=== PATIENT | female | born 1940 | race Caucasian/White ===

== ENCOUNTER 2017-04-30 16:50 | Inpatient (IN) | payer MEDICARE, OTHER ==
[~2017-04-30] VITALS: Ht 167.6 cm; Wt 59.9 kg
[2017-04-30] MEDS ORDERED: LORA1TAB PO (17:13)
[2017-04-30] MEDS ORDERED: CYAN500L3 SL (17:13)
[2017-04-30] MEDS ORDERED: HYOS0.1273 PO (17:13)
[2017-04-30] MEDS ORDERED: THIA100T13 PO (17:13)
[2017-04-30] MEDS ORDERED: RAME8TAB15 PO (17:13)
[2017-04-30] MEDS ORDERED: DIGO125T PO (17:13)
[2017-04-30] MEDS ORDERED: ZOLP5TAB2 PO (17:13)
[2017-04-30] MEDS ORDERED: CARI350T27 PO (17:13)
[2017-04-30] MEDS ORDERED: MULT1TAB73 PO (17:13)
[2017-04-30] MEDS ORDERED: FOLI1TAB16 PO (17:13)
--- NOTE | 2017-04-30 17:15 | NUR ---
SBAR report given to Aashish RN in MHU. Spoke with nursing restaurant supervisor Mikaela who stated even thought the pt was accepted as a voluntary admission to MHU she needs another psych eval.
--- NOTE | 2017-04-30 17:15 | NUR ---
PT IS MEDICALLY CLEARED BY DR HUGO. CALLED GALINDO LOO FROM [facility], ETA 2 HOURS.
--- NOTE | 2017-04-30 17:21 | NUR ---
BELONGING LIST COMPLETED AND PLACED IN THE CHART. MRSA SWAB COLLECTED AND SENT TO LAB.
--- NOTE | 2017-04-30 18:22 | NUR ---
PT PROVIDED DINNER AND ATE 100% OF DINNER TRAY.
--- NOTE | 2017-04-30 18:47 | NUR ---
PT RESTING IN BED, READING A BOOK. NO C/O PAIN.
[2017-04-30] MEDS ORDERED: LORAZEPAM 0.5 MG TABLET PO ONE (19:15)
[2017-04-30] MEDS ORDERED: DIGOXIN 125 MCG TABLET PO ONE (19:15)
[2017-04-30] MEDS ORDERED: LORAZEPAM 1 MG TABLET ONE (19:33)
[2017-04-30] MEDS ORDERED: DIGOXIN 125 MCG TABLET ONE (19:34)
--- NOTE | 2017-04-30 21:07 | NUR ---
pt refuses pain medication for c/o headache - vs and ns wnl - report provided to rhiannon fink rn
[2017-04-30] MEDS ORDERED: MAGNESIUM HYDROXIDE 30 ML LIQUID UDC PO PRN (21:15)
[2017-04-30] MEDS ORDERED: MAG HYDROX/AL HYDROX/SIMETH 30 ML LIQUID UDC PO PRN (21:15)
[2017-04-30] MEDS ORDERED: ZOLPIDEM 5 MG TABLET PO PRN (21:15)
[2017-04-30] MEDS: LORAZEPAM 0.5 MG TABLET PO PRN (22:27)
[2017-04-30] MEDS ORDERED: LORAZEPAM 0.5 MG TABLET ONE (22:35)
--- NOTE | 2017-04-30 23:04 | NUR ---
At approx 2115, admitted 77 year old female to [facility] under the care of Dr Raymundo. Pt is on a 5150 hold due to GD. Patient lives in a Mobile home, she was BIB EMS to [facility] ER after her caregiver found her unresponsive with pills bottles next to her. Pt presented to [facility] ER with AMS and worsening depression which she has been suffering from since her passes away one year ago. Upon evaluation in the ER, her alcohol level was slightly elevated and there was suspicion by the paramedics that she took extra doses of her medications including digoxin lorazepam and soma. Per hold, Pt. has had increased ETOH and frequent falls, patient denied intension OD. [facility] [place] [facility] Holds started on 04/30/17 at 1999 and will end on 05/03/17 at 1999. At time of admission, patient was noted irritable. She was not compliant with admission process. She required multiple redirections. Skin assessment, two small circular bruises noted in left mid arm lateral aspect. will continue to monitor.
[2017-04-30] MEDS ORDERED: HYOSCYAMINE SULFATE 0.125 MG TABLET PO PRN (23:45)
[2017-05-01 02:52] VITALS: BP 131/88
[2017-05-01] MEDS: FOLIC ACID 1 MG TABLET PO SCH (09:00)
[2017-05-01] MEDS ORDERED: DIGOXIN 125 MCG TABLET PO SCH (09:00)
[2017-05-01] MEDS: THIAMINE HCL 100 MG TABLET PO SCH (09:14)
[2017-05-01] MEDS: ESCITALOPRAM OXALATE 10 MG TABLET PO SCH (10:00)
--- NOTE | 2017-05-01 13:02 | NUR ---
Initial Discharge Instructions: Pt currently lives in a mobile home alone [[address] [place] [id number]; [phone]]. Per pt, she would like to return there upon discharge with Home Health for Physical Therapy. acetone recovery worker attempted to contact pt's nephew, Cayden, and left a voicemail. SW will speak with pt, family, and MD regarding appropriate discharge plans. SW will form a safe and proper discharge.
[2017-05-01] MEDS: LORAZEPAM 0.5 MG TABLET PO PRN ×2 (13:39→20:03)
--- NOTE | 2017-05-01 13:45 | NUR ---
Gps/Tool Shaper Setup Operator- Suspicious, hesitant to take routine medications orders by Psychiatrist, wants print out to read , does not just talking and telling her, what is the indications of lexapro for. Claimed Pyschiatrist didnt talk to her about any medicatons, she only takes ativan per patient.
[2017-05-01 15:00] VITALS: BP 127/81
--- NOTE | 2017-05-01 15:00 | NUR ---
Gps/Adjunct Phlebotomy Instructor- Per patient she found her ring with red stone in her room , verbalized she is worried that rings that was placed in the safe are not complete since she found the ring that supposed to be in the safe,informed rings secures in the safe
--- NOTE | 2017-05-01 15:07 | NUR ---
Firearms Report: [employer] completed and submitted [employer]arms Report on 05/01/17.
[2017-05-01] MEDS: ACETAMINOPHEN 325 MG TABLET PO PRN (16:54)
[2017-05-01] MEDS: DIGOXIN 125 MCG TABLET PO SCH (19:44)
[2017-05-01 20:00] VITALS: BP 140/79
--- NOTE | 2017-05-01 20:03 | NUR ---
gps: patient c/o anxiety. ativan 0.5 mg po given.
[2017-05-01] MEDS: TRAZODONE 50 MG TABLET PO SCH (21:00)
--- NOTE | 2017-05-01 21:05 | NUR ---
gps: patient stated i am feeling better now. prn effective for anxiety.
[2017-05-02] MEDS: CARISOPRODOL 350 MG TABLET PO PRN ×2 (00:17→20:15)
--- NOTE | 2017-05-02 00:18 | NUR ---
gps: patient c/o spasm. soma 350 mg po given per patient requested,
--- NOTE | 2017-05-02 01:20 | NUR ---
gps: patient stated i am feeling better now. prn for spasm effective.
[2017-05-02] MEDS: DIGOXIN 125 MCG TABLET PO SCH ×2 (06:06→18:42)
--- NOTE | 2017-05-02 06:36 | NUR ---
GPS: Remain calm and cooperative with care. refused trazodone hs po dose. slept 08:15 hrs through the night. patient is needy but manageable with nursing care. continue monitoring for safety.
[2017-05-02 07:23] LABS: BASOPHILS # (AUTO) 0.1 K/uL (0.0-8.0); BASOPHILS % (AUTO) 1.1 % (0.0-2.0); EOSINOPHILS # (AUTO) 0.2 K/uL (0.0-0.7); EOSINOPHILS % (AUTO) 3.4 % (0.0-7.0); HEMOGLOBIN 14.2 g/dL (10.9-14.3); LYMPHOCYTES # (AUTO) 1.3 K/uL (20.0-40.0); LYMPHOCYTES % (AUTO) 25.5 % (20.5-51.5); MEAN CORPUSCULAR HGB CONC 35 g/dL (32.3-35.6); MEAN CORPUSCULAR VOLUME 107.1 fL (75.5-95.3); MONOCYTES # (AUTO) 0.6 K/uL (2.0-10.0); MONOCYTES % (AUTO) 12.4 % (0.0-11.0); NEUTROPHILS # (AUTO) 2.9 K/uL (1.8-8.9); NEUTROPHILS % (AUTO) 57.6 % (38.5-71.5); PLATELET COUNT (AUTO) 137 K/uL (179-408); RED BLOOD CELL COUNT(AUTO) 3.83 MIL/uL (3.63-4.92); WHITE BLOOD COUNT (AUTO) 5.1 K/uL (3.8-11.8)
[2017-05-02 07:30] VITALS: BP 130/79
[2017-05-02 07:35] LABS: CARBON DIOXIDE 29 mmol/L (21-32); CHLORIDE 106 mmol/L (98-107); CREATININE 0.8 mg/dL (0.6-1.3); GLUCOSE 139 mg/dL (74-106); MAGNESIUM 2.1 mg/dL (1.8-2.4); PHOSPHOROUS 3.6 mg/dL (2.5-4.9); POTASSIUM 4.6 mmol/L (3.5-5.1); UREA NITROGEN, BLOOD 20 mg/dL (7-18)
[2017-05-02] MEDS: LORAZEPAM 0.5 MG TABLET PO PRN ×2 (09:50→16:56)
[2017-05-02] MEDS: THIAMINE HCL 100 MG TABLET PO SCH (09:50)
[2017-05-02] MEDS: FOLIC ACID 1 MG TABLET PO SCH (09:50)
[2017-05-02] MEDS: ESCITALOPRAM OXALATE 10 MG TABLET PO SCH (09:50)
[2017-05-02 15:00] VITALS: BP 140/76
[2017-05-02 20:00] VITALS: BP 133/85
[2017-05-02] MEDS: TRAZODONE 50 MG TABLET PO SCH (20:16)
[2017-05-03] MEDS: DIGOXIN 125 MCG TABLET PO SCH ×2 (06:28→20:03)
[2017-05-03 07:30] VITALS: BP 120/86
[2017-05-03] MEDS: THIAMINE HCL 100 MG TABLET PO SCH ×2 (08:33→09:00)
[2017-05-03] MEDS: ESCITALOPRAM OXALATE 10 MG TABLET PO SCH ×2 (08:33→09:00)
[2017-05-03] MEDS: FOLIC ACID 1 MG TABLET PO SCH ×2 (08:33→09:00)
[2017-05-03] MEDS ORDERED: THIAMINE HCL 100 MG TABLET PO SCH (09:00)
[2017-05-03] MEDS: LORAZEPAM 0.5 MG TABLET PO PRN ×2 (09:32→21:38)
[2017-05-03 14:56] LABS: *BLOOD, URINE NEGATIVE (NEGATIVE); *COLOR,URINE YELLOW (YELLOW); *KETONES,URINE NEGATIVE (NEGATIVE); *PROTEIN,URINE NEGATIVE (NEGATIVE); LEUKOCYTE ESTERASE ,URINE TRACE (NEGATIVE); NITRITE, URINE NEGATIVE (NEGATIVE); PH,URINE 5.5 (5.0-8.0); UGLUCOSE NEGATIVE (NEGATIVE)
[2017-05-03 15:00] VITALS: BP 122/80
[2017-05-03 15:08] LABS: *BILIRUBIN,URIN 1+ (NEGATIVE); *CLARITY,URINE HAZY (CLEAR)
[2017-05-03] MEDS: ACETAMINOPHEN 325 MG TABLET PO PRN (15:08)
[2017-05-03 15:09] LABS: BACTERIA,URINE NONE SEEN /HPF (NONE SEEN); RBC,URINE 0-3 /HPF (0-3); SQUAMOUS EPITHELIAL CELL,UR FEW /HPF (NONE SEEN)
[2017-05-03 15:10] LABS: MUCUS,URINE FEW /LPF (0-FEW)
[2017-05-03 19:30] VITALS: BP 142/91
[2017-05-03] MEDS: TRAZODONE 50 MG TABLET PO SCH (20:07)
--- NOTE | 2017-05-03 21:19 | NUR ---
PATIENT RECEIVED IN ACTIVITIES ROOM WATCHING T.V. INTERACTING WITH PEERS. PATIENT DENIES SI, WILL CONTINUE TO MONITOR AND REDIRECT NEEDED. PATIENT CONTINUES TO REFUSE TRAZADONE AT BEDTIME, EXPLAINED THE IMPORTANCE OF TAKING MEDICATION CONTINUES TO REFUSE " I WANT TO SPEAK WITH MY DOCTOR ABOUT THIS HOLD." PATIENT IN NO APPARENT DISTRESS, WILL CONTINUE TO MONITOR. NO AGGRESSIVE OR COMBATIVE BEHAVIOR NOTED, WILL CONTINUE TO MONITOR. PATIENT REMAINS PARANOID/SUSPICIOUS WILL CONTINUE TO MONITOR BEHAVIOR OR ANY CHANGES AND REDIRECT.
[2017-05-04] MEDS: LORAZEPAM 0.5 MG TABLET PO PRN (04:16)
[2017-05-04 07:30] VITALS: BP 139/86
[2017-05-04] MEDS: THIAMINE HCL 100 MG TABLET PO SCH (08:30)
[2017-05-04] MEDS: FOLIC ACID 1 MG TABLET PO SCH (08:30)
[2017-05-04] MEDS: DIGOXIN 125 MCG TABLET PO SCH ×2 (08:30→20:06)
[2017-05-04] MEDS: ESCITALOPRAM OXALATE 10 MG TABLET PO SCH (08:31)
[2017-05-04] MEDS: ACETAMINOPHEN 325 MG TABLET PO PRN (16:14)
[2017-05-04 16:23] VITALS: BP 150/93
[2017-05-04 21:21] VITALS: BP 134/79
[2017-05-04] MEDS: CARISOPRODOL 350 MG TABLET PO PRN (21:25)
--- NOTE | 2017-05-04 21:25 | NUR ---
GPS: PATIENT C/O SPASM SOMA 350 MG PO GIVEN PER PATIENT REQUESTED.
[2017-05-05] MEDS: LORAZEPAM 0.5 MG TABLET PO PRN (02:44)
--- NOTE | 2017-05-05 06:15 | NUR ---
GPS: REMAIN CALM AND COOPERATIVE. ATIVAN X1 GIVEN FOR ANXIETY AND EFFECTIVE. SLEPT 7 HRS THROUGH THE NIGHT. CONTINUE PLAN OF CARE.
[2017-05-05 07:30] VITALS: BP 132/82
[2017-05-05] MEDS: DIGOXIN 125 MCG TABLET PO SCH ×3 (08:12→20:19)
[2017-05-05] MEDS: THIAMINE HCL 100 MG TABLET PO SCH ×2 (08:13→09:31)
[2017-05-05] MEDS: FOLIC ACID 1 MG TABLET PO SCH ×2 (08:13→09:30)
[2017-05-05] MEDS: ESCITALOPRAM OXALATE 10 MG TABLET PO SCH ×3 (08:13→09:30)
--- NOTE | 2017-05-05 09:30 | NUR ---
Pt refusing to take her lexapro - discussed risk and benefits to patient. PT continues to refuse lexapro.
[2017-05-05] MEDS: ACETAMINOPHEN 325 MG TABLET PO PRN ×2 (10:29→12:39)
--- NOTE | 2017-05-05 12:00 | NUR ---
Pt wants to stay on voluntary status in MHU.
--- NOTE | 2017-05-05 12:30 | NUR ---
Pt is c/o generalized pain in her body with pain level of 5/10 described as aching. Gave tylenol for pain.
--- NOTE | 2017-05-05 13:30 | NUR ---
Pt is in no acute distress. Pt states pain level down to zero. Tylenol effective.
[2017-05-05 16:46] VITALS: BP 116/78
[2017-05-05 21:49] VITALS: BP 115/73
[2017-05-05] MEDS: CARISOPRODOL 350 MG TABLET PO PRN (22:25)
[2017-05-05 22:26] LABS: *BILIRUBIN,URIN NEGATIVE (NEGATIVE); *BLOOD, URINE Trace-intact (NEGATIVE); *CLARITY,URINE SLIGHTLY CLOUDY (CLEAR); *COLOR,URINE YELLOW (YELLOW); *KETONES,URINE NEGATIVE (NEGATIVE); *PROTEIN,URINE NEGATIVE (NEGATIVE); LEUKOCYTE ESTERASE ,URINE 1+ (NEGATIVE); NITRITE, URINE NEGATIVE (NEGATIVE); PH,URINE 6.5 (5.0-8.0); UGLUCOSE NEGATIVE (NEGATIVE)
[2017-05-05 22:35] LABS: BACTERIA,URINE NONE SEEN /HPF (NONE SEEN); RBC,URINE 0-3 /HPF (0-3)
[2017-05-05 22:36] LABS: SQUAMOUS EPITHELIAL CELL,UR FEW /HPF (NONE SEEN)
--- NOTE | 2017-05-05 23:00 | NUR ---
RECEIVED PATIENT IN THE DAY ROOM WATCHING TV. SHE IS A/O X 3 ABLE TO AMBULATE WITH THE AID OF A WALKER AND ABLE TO MAKE HER NEEDS KNOW. PT NOTED EASILY IRRITABLE, NEEDY, SUSPICIOUS. SHE WAS COMPLIANT WITH [facility] MEDICATION AND SHE WAS ABLE TO PROVIDE URINE TO SENT OUT FOR URINALYSIS AND C&S. SHE ALSO C/O GENERALIZED MUSCLE PAIN. SOMA 350MG PO PRN WAS GIVEN AT 2225. WILL MONITOR FOR EFFICACY. SAFETY WAS EMPHASIS. BED AT LOWEST POSITION, WHEELS LOCKED. ROOM FREE FROM CLUTTER, WELL-LIT AND FREQUENT ROUNDS/HEAD CHECKS.
--- NOTE | 2017-05-06 00:05 | NUR ---
PATIENT NOTED SLEEPING COMFORTABLE IN HER BED. SOMA 350MG PO PRN EFFECTIVE, WILL CONTINUE TO MONITOR.
[2017-05-06 07:30] VITALS: BP 133/85
[2017-05-06 08:27] LABS: BASOPHILS # (AUTO) 0.1 K/uL (0.0-8.0); BASOPHILS % (AUTO) 1.4 % (0.0-2.0); EOSINOPHILS # (AUTO) 0.1 K/uL (0.0-0.7); EOSINOPHILS % (AUTO) 2.8 % (0.0-7.0); HEMATOCRIT 40.3 % (31.2-41.9); LYMPHOCYTES # (AUTO) 1.3 K/uL (20.0-40.0); LYMPHOCYTES % (AUTO) 26.2 % (20.5-51.5); MEAN CORPUSCULAR HEMOGLOBIN 37.5 uug (24.7-32.8); MEAN CORPUSCULAR HGB CONC 35 g/dL (32.3-35.6); MEAN CORPUSCULAR VOLUME 107.6 fL (75.5-95.3); MONOCYTES # (AUTO) 0.7 K/uL (2.0-10.0); MONOCYTES % (AUTO) 13.2 % (0.0-11.0); NEUTROPHILS # (AUTO) 2.9 K/uL (1.8-8.9); NEUTROPHILS % (AUTO) 56.4 % (38.5-71.5); PLATELET COUNT (AUTO) 156 K/uL (179-408); RED BLOOD CELL COUNT(AUTO) 3.74 MIL/uL (3.63-4.92); WHITE BLOOD COUNT (AUTO) 5.2 K/uL (3.8-11.8)
[2017-05-06] MEDS: ESCITALOPRAM OXALATE 10 MG TABLET PO SCH (09:00)
--- NOTE | 2017-05-06 09:06 | NUR ---
DC Note: Patient came in on a 5150 for grave disability. Per [facility] guidelines, this social worker school has made attempts to reach family. Pt's nephew Farhan ([phone]) lives in [place] and is not able to assist with patient's care. Patient will not accept placement although this was offered. Patient will be discharged back home [[address] [place] [id number]; [phone]] via taxi between 11am and 12pm. Pt will follow-up with her Primary Care Physician, Dr. Katarzyna Bauman [[facility] [place] [address]; [phone]]. Pt was also given referrals for [facility] ([phone]). Pt was given outpatient psych referrals for ; [phone]; and [phone]. Spoke with Giorgio at [facility] and faxed order to [phone], and they have agreed to provide Home Health for Physical Therapy, medication management, and Medical Social Work for the pt. Pt is also being followed by her [facility] Counseling Services Manager, Margaret ([phone]) who will be checking in with the pt in the next week. Pt was also given [facility] Crisis Line ( ) and Elida Jesus ( ).
[2017-05-06 09:26] LABS: ALANINE AMINOTRANSFERASE 51 U/L (14-59); ALKALINE PHOSPHATASE 116 U/L (50-136); ASPARTATE AMINOTRANSFERASE 38 U/L (15-37); BILIRUBIN,TOTAL 0.9 mg/dL (0.2-1.0); CARBON DIOXIDE 27 mmol/L (21-32); CHLORIDE 104 mmol/L (98-107); CREATININE 0.8 mg/dL (0.6-1.3); GLUCOSE 147 mg/dL (74-106); MAGNESIUM 1.9 mg/dL (1.8-2.4); POTASSIUM 4.5 mmol/L (3.5-5.1); TOTAL PROTEIN, SERUM 7.2 g/dL (6.4-8.2); UREA NITROGEN, BLOOD 16 mg/dL (7-18)
[2017-05-06] MEDS: DIGOXIN 125 MCG TABLET PO SCH (09:40)
[2017-05-06] MEDS: FOLIC ACID 1 MG TABLET PO SCH (09:41)
[2017-05-06] MEDS: THIAMINE HCL 100 MG TABLET PO SCH (09:41)
[2017-05-06] MEDS ORDERED: SULFAMETH/TRIMETH 800/160 MG TABLET PO SCH (10:30)
--- NOTE | 2017-05-06 11:15 | NUR ---
Pt is alert/oriented x 4. Pt denies S.I. no agitation. pt is leaving AMA. Pt continues to refuse her psych medications, states there is no need for them. Pt also decline ABX. All belongings returned. Discharge paperwork signed. Pt is being discharged via Taxi.
[2017-05-06 13:39] LABS: THYROID STIMULATING HORMONE 3.866 mIU/mL (0.358-3.740)
== END 2017-05-06 11:30 | disposition left against medical advice (07) | DRG 881 ==
LOC: ER 16:51 → GPS 20:58
PROVIDERS: ADMIT Psychiatry & Neurology Psychiatry; ATTEND Nurse Practitioner Acute Care
DX: F32.9 Major depressive disorder, single episode, unspecified (principal); D69.6 Thrombocytopenia, unspecified; I48.91 Unspecified atrial fibrillation; N39.0 Urinary tract infection, site not specified; F41.9 Anxiety disorder, unspecified; E78.5 Hyperlipidemia, unspecified; Z87.442 Personal history of urinary calculi; D75.89 Other specified diseases of blood and blood-forming organs; Z90.49 Acquired absence of other specified parts of digestive tract; F10.10 Alcohol abuse, uncomplicated; R73.9 Hyperglycemia, unspecified; G89.29 Other chronic pain
CPT/HCPCS: 36415; 83735; 84100; 84443; 85025; 87086; 93005; A4663